=== PATIENT | female | born 1965 | race Caucasian/White ===

== ENCOUNTER 2020-08-08 09:11 | Outpatient (CLI) | payer BC ==
[2020-08-08] VITALS (7 sets, daily range): BP systolic 105–161; BP diastolic 71–99; PULSE 71–105
[~2020-08-08] VITALS: Ht 172.7 cm; Wt 153.0 kg
[~2020-08-08 09:11] MED LIST: AFLEXA340 MG PO; ALLERGY RELIEF10 M1 PO; ASPIRIN E.C. 8181 MG PO; CARISOPRODOL350 MG PO; CLARITIN 1010 MG/TAB PO; COLACE50 MG PO; COREG12.5 MG PO; COZAAR 50MG50 MG/TAB PO; DICLOFENAC50 MG PO; HCTZ12.5TAB PO; HYDROCODONE BIT1 TA3 PO; LEXAPRO20 MG PO; LISINOPRIL2.5 MG PO; MELATONIN5 M1 SL; NORCO 325 MG-101 TAB PO; NORCO 325 MG-51 TAB PO; SYNTHROID 0.10.15 MG PO; TROKEND25 PO; clonazepam PO; detrol PO
[2020-08-08 11:13] LABS: CSF APPEARANCE CLEAR; CSF COLOR COLORLESS; CSF RBC 1 /mm3 (0-0)
[2020-08-08 11:25] LABS: GLUCOSE,CSF 59 mg/dL (40-70); TOTAL PROTEIN,CSF 47 mg/dL (15-45)
[2020-08-08 12:39] LABS: CSF MONONUCLEAR 100 % (70-100); CSF POLYMORPHONUCLEAR 0 % (0-6)
== END 2020-08-08 12:40 | disposition home or self-care (01) ==
LOC: COL.RAD 09:11
PROVIDERS: Psychiatry & Neurology Neurology
DX: G43.909 Migraine, unspecified, not intractable, without status migrainosus (principal); G35 Multiple sclerosis; G44.89 Other headache syndrome